=== PATIENT | female | born 1975 ===

== ENCOUNTER 2020-04-10 08:15 | Day surgery (SDC) | payer MEDICARE ==
[~2020-04-10] VITALS: Ht 167.6 cm; Wt 88.5 kg
[~2020-04-10 08:15] MED LIST: ESCI10 PO; IBUP800 PO
[2020-04-10] MEDS ORDERED: PROG100 PO (08:34)
--- NOTE | 2020-04-10 08:45 | NUR ---
Ambulatory in Day Surgery History, Chart, Medications and Allergies reviewed before start of procedure.Patient confirms NPO status and agrees with scheduled surgery. Pre-Op teaching done. Pt verbalizes understanding. Patient States Post-Procedure ride home has been arranged.
--- NOTE | 2020-04-10 10:57 | NUR ---
PT AWAKE, ALERT AND CONVERSING WITH STAFF. DENIES PAIN AT THIS TIME. DENIES NAUSEA.
--- NOTE | 2020-04-10 11:30 | NUR ---
PT DRESSED SELF WITHOUT ANY DIFFICULTY. IV DC TIP INTACT. PT TOLERATED WELL. RIDE ON WAY TO DRIVE PT HOME AT THIS TIME. NO C/O PAIN OR NAUSEA. NO DIFFICULTY WITH MOBILITY.
--- NOTE | 2020-04-10 11:40 | NUR ---
REVIEWED DC INSTRUCTIONS - PT VERBALIZED UNDERSTANDING OF ALL INSTRUCTIONS GIVEN. IV WAS DC PRIOR TO DC - TIP INTACT. PT DISCHARGED HOME VIA WC WITH FAMILY MEMBER TO DRIVE HER.
--- NOTE | 2020-04-11 14:34 | NUR ---
04/11/201433,[facility] Pritchard [facility] CR[facility] DURING CHARTING, LSM CHARTED THE REMAINDER OF THE PREP AND COUNTS
== END 2020-04-10 11:38 | disposition home or self-care (01) ==
LOC: ORSCMMR 08:15 → ORD 09:30 → ORSCMMR 09:30
PROVIDERS: Obstetrics & Gynecology
PROC: 0UDB8ZZ Extraction of Endometrium, Via Natural or Artificial Opening Endoscopic (ICD-10-PCS; principal; 2020-04-10 09:30)
PROC: 0UB98ZX Excision of Uterus, Via Natural or Artificial Opening Endoscopic, Diagnostic (ICD-10-PCS; principal; 2020-04-10 09:30)
PROC: 0UH97HZ Insertion of Contraceptive Device into Uterus, Via Natural or Artificial Opening (ICD-10-PCS; principal; 2020-04-10 09:30)
DX: N84.0 Polyp of corpus uteri (principal); Z30.430 Encounter for insertion of intrauterine contraceptive device
CPT/HCPCS: 88305; J0330; J1885; J2250; J2405; J2704; J3010; J7120; J7298